=== PATIENT | male | born 1960 | race Two or more races ===

== ENCOUNTER → 2024-09-02 | Outpatient (CLI) | payer BC, SELFPAY ==
[2024-09-02 09:17] LABS: Glucose Estimated Average 117 mg/dL (80-131); Hemoglobin A1C 5.7 % Hgb (4.8-6.0)
== END | disposition home or self-care (01) ==
LOC: COPL 07:10
PROVIDERS: PCP Family Medicine; Referring Provider Family Medicine; Visit Provider Family Medicine
DX: E11.65 Type 2 diabetes mellitus with hyperglycemia (principal)
CPT/HCPCS: 36415; 83036

== ENCOUNTER → 2024-11-20 | Outpatient (CLI) | payer OTHER, SELFPAY ==
[2024-11-20 08:04] LABS: Collection Type, Urine Clean Catch
[2024-11-20 08:33] LABS: Basophils % (Auto) 0 % (0-2.5); Eosinophils # (Auto) 0.1 Thou/mm3 (0.0-0.5); Eosinophils % (Auto) 2 % (0-10); Hematocrit 44.8 % (41.0-53.0); Hemoglobin 15.6 g/dL (13.5-16.0); Immature Granulocytes % (Auto) 0 % (0-0); Immature Granulocytes Auto 0.01 Thou/mm3 (0.00-0.00); Lymphocytes # (Auto) 2.2 Thou/mm3 (1.0-4.8); Lymphocytes % (Auto) 32 % (10-50); Mean Corpuscular HGB Conc 34.8 g/dl (31.0-37.0); Mean Corpuscular Hemoglobin 30.9 pg (25.0-35.0); Mean Corpuscular Volume 89 fL (80-100); Monocytes # (Auto) 0.5 Thou/mm3 (0.0-0.8); Monocytes % (Auto) 7 % (0-12); Neutrophils # (Auto) 4.1 Thou/mm3 (1.8-7.7); Neutrophils % (Auto) 59 % (37-80); Nucleated Red Blood Cell % 0 /100 WBC (0); Platelet Count 218 Thou/mm3 (140-440); RDW Standard Deviation 41.3 fL (35.1-43.9); Red Blood Count 5.05 Miln/mm3 (4.50-5.90); White Blood Count 6.9 Thou/mm3 (3.8-10.6)
[2024-11-20 09:00] LABS: Bilirubin,Urine Negative (Negative); Blood,Urine Negative (Negative); Clarity,Urine Clear (Clear/Hazy); Color,Urine Yellow (Lt Yel-Yel); Glucose, Urine Negative (Negative); Ketones,Urine Negative (Negative); Leukocyte Esterase,Urine Negative (Negative); Nitrite,Urine Negative (Negative); PH,Urine 6.5 (5.0-7.0); Protein,Urine Trace (Neg - Trace); RBC,Urine 2 /hpf (0-3); Specific Gravity,Urine 1.023 (1.001-1.035); Squamous Epithelial Cell,Urine < 1 /hpf (0-5); Urobilinogen,Urine Negative mg/dL (0.0-1.0); WBC,Urine 3 /hpf (0-5)
[2024-11-20 09:02] LABS: Creatinine MALB Rnd Ur 190 mg/dL (30-125); Microalbumin Creat Ratio 2 mg/gCrea (<30); Microalbumin, Random Urine 4 mg/L (0-300)
[2024-11-20 09:20] LABS: Alanine Aminotransferase 24 U/L (10-49); Albumin, Serum 4.2 gm/dL (3.4-4.8); Albumin/Globulin Ratio 1.6 (1.2-2.2); Alkaline Phosphatase 85 U/L (46-116); Anion Gap 9 (7-16); Aspartate Amino Transferase 20 U/L (0-34); BUN/Creatinine Ratio 14 Ratio (12-20); Bilirubin,Total 0.6 mg/dL (0.3-1.2); Blood Urea Nitrogen 11 mg/dL (9-23); Calcium 9.1 mg/dL (8.3-10.6); Calcium (Corrected) 9.1 mg/dL (8.5-10.1); Carbon Dioxide 23.8 mMol/L (20.0-31.0); Cardiac Risk Estimate 2.5 RATIO (4.0-6.7); Chloride 105 mMol/L (98-107); Cholesterol 165 mg/dL (132-200); Creatinine (Component) 0.8 mg/dL (0.6-1.3); Globulin 2.6 gm/dL (2.3-3.5); Glucose 120 mg/dL (74-106); HDL Cholesterol 65 mg/dL (40-60); LDL Cholesterol,Calculated 78 mg/dL (0-130); Osmolality,Calculated 276 (275-295); Potassium 4.3 mMol/L (3.4-5.1); Sodium 138 mMol/L (136-145); Total Protein 6.8 gm/dL (5.7-8.2); Triglycerides 112 mg/dL (30-150); eGFR > 60 See Note
== END | disposition home or self-care (01) ==
LOC: COPL 07:16
PROVIDERS: PCP Family Medicine; Referring Provider Family Medicine; Visit Provider Family Medicine
DX: Z00.00 Encounter for general adult medical examination without abnormal findings (principal); E11.40 Type 2 diabetes mellitus with diabetic neuropathy, unspecified; E78.2 Mixed hyperlipidemia; I10 Essential (primary) hypertension
CPT/HCPCS: 36415; 80053; 80061; 81001; 82043; 82570; 85025

== ENCOUNTER → 2024-12-30 | Outpatient (CLI) | payer OTHER, SELFPAY ==
[2024-12-30 16:45] LABS: Collection Type, Urine Clean Catch
[2024-12-30 17:57] LABS: Bilirubin,Urine Negative (Negative); Blood,Urine Negative (Negative); Clarity,Urine Clear (Clear/Hazy); Color,Urine Yellow (Lt Yel-Yel); Glucose, Urine Negative (Negative); Hyaline Casts,Urine < 1 /hpf (0-1); Ketones,Urine Negative (Negative); Leukocyte Esterase,Urine Positive (Negative); Nitrite,Urine Negative (Negative); PH,Urine 6.5 (5.0-7.0); Protein,Urine Trace (Neg - Trace); RBC,Urine 1 /hpf (0-3); Specific Gravity,Urine 1.028 (1.001-1.035); Squamous Epithelial Cell,Urine 1 /hpf (0-5); WBC,Urine 8 /hpf (0-5)
== END | disposition home or self-care (01) ==
LOC: SLDO 16:31
PROVIDERS: PCP Family Medicine; Referring Provider Family Medicine; Visit Provider Family Medicine
DX: N30.00 Acute cystitis without hematuria (principal)
CPT/HCPCS: 81001; 87086

== ENCOUNTER 2025-02-04 13:20 | Outpatient (RCR) | payer OTHER, SELFPAY ==
--- NOTE | 2025-02-04 14:53 | CTCFLWUP_ITS ---
[facility] [address] [place], [place] [address] FOLLOW-UP NOTE Date: 02/04/2025 MR#: [id number] Name: LAYLA TOWNSEND : 1960 Dx: C61 Malignant neoplasm of prostate Identification. Patient was CA the prostate underwent radical prostatectomy performed at [facility] by Dr. Davalos 12/26/2023. Final path revealed Chi's 3+4 equal 7 group 2 with extraprostatic extension focal involvement and perineural invasion. PSA had risen to 0.18., And reportedly has risen more and recommended radiation with Lupron shots. I was unable to get hold of Joleen Chirinos who works with Dr. Davalos today. PSMA PET scan has been ordered we will check this as well. In the meantime in anticipation of treatment discussion regarding Lupron shots and radiation was described along with the side effects. Electronically signed by: Quinn Hawkins M.D. 02/04/2025 2:51 PM
--- NOTE | 2025-02-04 14:56 | CTCTXPLN_ITS ---
[facility] [place] [address] [place], [place] [address] Physician Clinical Treatment Planning Note Date of Service: 02/04/2025 Name: LAYLA TOWNSEND : 1960 The patient has agreed to proceed with Radiation therapy. Tests and supporting medical records were interpreted to assist in defining the tumor location and extent of disease. Further imaging will be necessary to contour and delineate the volume to which the XRT will be provided. A. Treatment Intent: Curative B. Modality: 10 MV C. Requested Technique: VMAT D. Treatment Site: Pelvis E. Critical structures to be contoured on plan: F. In order to accomplish this plan, I am ordering/Prescribing the followin. Simulations (s) will be performed to accomplish a reproducible treatment position, to determine optimal treatment portals/beam arrangements, to design beam modifying devices and verify treatment portals on patient prior to the commencement of Radiation Therapy. Pelvis 2. Devices; for immobilization and beam shaping: Vac-Ting 3. CT Guidance for placement of XRT bruno Scan area: Pelvis 4. Portal images Frequency: 5. Invivo transit dose measurement once per week on all VMAT patients. 6. Special Physics Consult Requested for: 7. Other requests: G. Dose Objectives: Curative Electronically signed by: Quinn Hawkins M.D. 02/04/2025 2:54 PM
--- NOTE | 2025-02-04 14:58 | CTCTXPLNST_ITS ---
1Radiation Oncology Treatment Planning Sheet Name: LAYLA TOWNSEND MR#: [id number] : 1960 Dx: C61 Malignant neoplasm of prostate Date of Service: 02/04/2025 Account #: ?? Pt Treatment Intent: curative palliative other: Stage: Procedure CPT # Ordered Spec. Procedure 31229 Mojica Complex (set-up) 82599 pelvis 1 Mojica Simple 33379 IMRT Plan 16107 1 MLC Devices VMAT 62332 3 Mojica 3 D 66180 TRTMT dev Complex 67808 1 TRTMT dev simple 35502 Basic [place] 81080 6 Special Dosimetry 89669 Spec Physics 35633 Port Films 35189 SRS Cranial/1FX 28242 SBR 5 FX or Less /ex: 5 = 5 fx 88993 IMRT Simple 23603 6840 38 IMRT Complex 70051 IGRT 24427 35 Rad del com 6-10 28810 Rad del com 11- 06580 Cont Med Physics 07013 7 Treatment Planning 88558 1 Rad del com 20 mev 26271 Rad del inter 6-10 71389 Rad del inter 11 25581 Rad del simple 6-10 27860 Rad del simple 11-19 83747 Special Port Plan 77324 TRTMT dev inter 98282 Isodose Complex 56967 Isodose simple 32696 Resp Motion Mgmt Simulation 39168 Placement of Fiducial Markers 32006 Electronically Signed By: Quinn Hawkins MD, DABR 02/04/2025 2:56 PM
== END 2025-02-12 23:59 | disposition home or self-care (01) ==
LOC: SCTC 13:20
PROVIDERS: PCP Family Medicine; Referring Provider Family Medicine; Visit Provider Radiology Therapeutic Radiology
DX: C61 Malignant neoplasm of prostate (principal); Z90.79 Acquired absence of other genital organ(s)
CPT/HCPCS: 99213; G0463

== ENCOUNTER → 2025-03-06 | Outpatient (CLI) | payer OTHER, SELFPAY ==
[2025-03-06 16:38] LABS: Glucose Estimated Average 120 mg/dL (80-131); Hemoglobin A1C 5.8 % Hgb (4.8-6.0)
== END | disposition home or self-care (01) ==
LOC: COPL 14:54
PROVIDERS: PCP Family Medicine; Referring Provider Family Medicine; Visit Provider Family Medicine
DX: E11.40 Type 2 diabetes mellitus with diabetic neuropathy, unspecified (principal)
CPT/HCPCS: 36415; 83036

== ENCOUNTER 2025-03-14 07:48 | Outpatient (RCR) | payer OTHER, SELFPAY ==
--- NOTE | 2025-02-14 09:27 | CTCSNOTE_ITS ---
[facility] [address] [place], [place] [address] CT Simulation Note Date: 02/14/2025 MR# [id number] Name: LAYLA TOWNSEND : 1960 (A) DIAGNOSIS: C61 Malignant neoplasm of prostate (B) Patient was placed in supine position and used vaklok for immobilization purposes. (C) CT slices included pelvis (D) VMAT Will be needed for maximum sparing of adjacent normal critical structures. (E) Patient tolerated the simulation well and left the room in good condition. Electronically signed by: Quinn Hawkins MD, ROSE 02/14/2025 9:24 AM
== END 2025-03-15 23:59 | disposition home or self-care (01) ==
LOC: SCTC 07:48
PROVIDERS: PCP Family Medicine; Referring Provider Family Medicine; Visit Provider Radiology Therapeutic Radiology
DX: Z51.0 Encounter for antineoplastic radiation therapy (principal); Z51.11 Encounter for antineoplastic chemotherapy; C61 Malignant neoplasm of prostate; Z90.79 Acquired absence of other genital organ(s)
CPT/HCPCS: 77014; 77290; 77300; 77301; 77334; 77336; 77338; 77385; 96402; J9217

== ENCOUNTER → 2025-03-17 | Outpatient (CLI) | payer OTHER, SELFPAY ==
--- NOTE | 2025-03-17 14:38 | XR_ITS ---
Examination: Knee bilateral, 6 views Technique: Knee AP, lateral, oblique each knee total 6 views INDICATIONS: Bilateral knee pain 8 months Date and time of exam: March 17, 2025 1424 hours findings: Minimal narrowing medial joint spaces Early osteoarthritis patellofemoral joints No erosive arthritis No fracture or dislocation involving either knee IMPRESSION: Bilateral knee mild osteoarthritis
== END | disposition home or self-care (01) ==
PROVIDERS: PCP Family Medicine; Referring Provider Family Medicine; Visit Provider Family Medicine
DX: M17.0 Bilateral primary osteoarthritis of knee (principal)
CPT/HCPCS: 73562

== ENCOUNTER → 2025-03-21 | Outpatient (CLI) | payer OTHER, SELFPAY ==
--- NOTE | 2025-03-21 08:30 | XR_ITS ---
Examination: Lumbar spine, 5 views Technique: Lumbar spine AP, lateral, coned lateral lower lumbar spine, bilateral obliques 5 views Exam date and time: March 21, 2025 0834 hours INDICATIONS: Lower back pain 6 months, history fracture L4-L5 vertebral body 6 years ago FINDINGS: Comparison February 05, 2024 Prominent facet arthropathy No lumbar fracture Mild to moderate lumbar spondylosis Mild disc narrowing L5-S1 IMPRESSION: No lumbar fracture Mild disc narrowing L5-S1
--- NOTE | 2025-03-21 08:30 | XR_ITS ---
EXAMINATION: Cervical spine, 5 views Technique: Cervical spine AP, AP odontoid, lateral, bilateral obliques, 5 views Exam date and time: March 21, 2025 0834 hours INDICATIONS: Neck pain 6 months. FINDINGS: Adequate alignment cervical vertebral bodies Early degenerative disc disease C4-C5, C5-C6 No cervical fracture Intact odontoid No significant neural foraminal stenosis IMPRESSION: Early degenerative disc disease C4-C5, C5-C6
== END | disposition home or self-care (01) ==
LOC: CDIM 08:27
PROVIDERS: PCP Family Medicine; Referring Provider Orthopaedic Surgery; Visit Provider Orthopaedic Surgery
DX: M50.321 Other cervical disc degeneration at C4-C5 level (principal); M48.07 Spinal stenosis, lumbosacral region
CPT/HCPCS: 72050; 72110

== ENCOUNTER 2025-04-14 14:20 | Outpatient (RCR) | payer OTHER, SELFPAY ==
--- NOTE | 2025-03-17 13:52 | CTCTRTNOTE_ITS ---
[facility] [address] [place], [place] [address] Weekly Management Date: 03/17/2025 ?? Name: LAYLA TOWNSEND : 1960 A. Patient is currently at 2160 cGy. B. Patient is tolerating treatment well. C. Resume radiation therapy. Electronically signed by: Quinn Hawkins M.D. 03/17/2025 1:49 PM
== END 2025-04-14 23:59 | disposition home or self-care (01) ==
LOC: SCTC 14:20
PROVIDERS: PCP Family Medicine; Referring Provider Family Medicine; Visit Provider Radiology Therapeutic Radiology
DX: Z51.0 Encounter for antineoplastic radiation therapy (principal); C61 Malignant neoplasm of prostate; Z90.79 Acquired absence of other genital organ(s)
CPT/HCPCS: 77336; 77385

== ENCOUNTER → 2025-05-05 | Outpatient (CLI) | payer OTHER, SELFPAY ==
[2025-05-05 09:40] LABS: Prostate Specific Antigen < 0.10 ng/mL (0-4.00)
== END | disposition home or self-care (01) ==
LOC: COPL 08:12
PROVIDERS: PCP Family Medicine; Referring Provider Radiology Therapeutic Radiology; Visit Provider Radiology Therapeutic Radiology
DX: C61 Malignant neoplasm of prostate (principal)
CPT/HCPCS: 36415; 84153

== ENCOUNTER 2025-05-07 14:22 | Outpatient (RCR) | payer OTHER, SELFPAY | END 2025-05-15 23:59 | disposition home or self-care (01) | LOC: SCTC 14:22 | PROVIDERS: PCP Family Medicine; Referring Provider Family Medicine; Visit Provider Radiology Therapeutic Radiology | DX: Z51.0 Encounter for antineoplastic radiation therapy (principal); C61 Malignant neoplasm of prostate | CPT/HCPCS: 77336; 77385; 99212; G0463 ==

== ENCOUNTER 2025-05-13 14:31 | Outpatient (RCR) | payer OTHER, SELFPAY ==
--- NOTE | 2025-05-13 15:10 | PTNOTE_ITS ---
PT OP Initial Eval Patient Information Outpatient Physical Therapy Treatment Date: 05/13/25 Visit Reasons: Radiculopathy Medical Diagnosis: B L1-2 radiculopathy Start of Care: 05/13/25 Date of Onset: 1.5 yrs ago Smoking Status Smoking Status: Never smoker Initial Assessment Subjective: Pt is 64 yr old male who c/o LBP and B LE pain since prostate removal 1.5 yrs ago. Increased pain with prolonged standing and sitting x 1 hr. He has difficulty finding comfortable positioning at night to sleep. PMH: prostate cancer, Hx of L5 vertebral body FX in 2010, borderline DM, HTN, high cholesterol Imaging: Xray of L/S in EMR Mild disc narrowing L5-S1 Pt goal: to get rid of the pain in order to play golf Objective: ? Trunk ArOM: ? B SB 50% of normal with LBP ? Extension: 20% with pain around L4-5, L5-S1 ? Flexion: 14 from floor with LBP ? B rotation: 60% with pain ? R SLR ROM: 45 deg. L SLR: 50 deg with posterior knee neural tension, LBP ? TTP: moderate paraspinals L5-S1 ? Neuro: B SLR: positive Assessment: Pt presents with limited trunk ROM into forward bending and sidebending that provoke the anterior thigh pain consistent with stenosis and lumbar L1-2 radiculopathy and vertebral osteophyte spurring. B SLR testing is positive. Pt has poor rehab potential to meet goals and is likely to have more pain with therapy interventions. PT recommends further diagnostic imaging of L/S such as MRI. Short Term and [employer] Copy[employer] Goals Eval and D/C Treatment Plan Eval and D/C Certification Dates: 05/13/25 Procedure Charges OP PT Eval Mod Complex 30 minutes: Yes
== END 2025-05-15 23:59 | disposition home or self-care (01) ==
LOC: CPTX 14:31
PROVIDERS: PCP Orthopaedic Surgery; Referring Provider Orthopaedic Surgery; Visit Provider Orthopaedic Surgery
DX: M54.16 Radiculopathy, lumbar region (principal); I10 Essential (primary) hypertension
CPT/HCPCS: 97162

== ENCOUNTER → 2025-07-29 | Outpatient (CLI) | payer OTHER, SELFPAY ==
[2025-07-29 15:51] LABS: Basophils # (Auto) 0.0 Thou/mm3 (0.0-0.2); Basophils % (Auto) 0 % (0-2.5); Eosinophils # (Auto) 0.1 Thou/mm3 (0.0-0.5); Eosinophils % (Auto) 2 % (0-10); Hematocrit 39.2 % (41.0-53.0); Hemoglobin 13.6 g/dL (13.5-16.0); Immature Granulocytes Auto 0.01 Thou/mm3 (0.00-0.00); Lymphocytes # (Auto) 1.3 Thou/mm3 (1.0-4.8); Lymphocytes % (Auto) 23 % (10-50); Mean Corpuscular HGB Conc 34.7 g/dl (31.0-37.0); Mean Corpuscular Hemoglobin 30.4 pg (25.0-35.0); Mean Corpuscular Volume 88 fL (80-100); Monocytes # (Auto) 0.2 Thou/mm3 (0.0-0.8); Monocytes % (Auto) 4 % (0-12); Neutrophils # (Auto) 3.9 Thou/mm3 (1.8-7.7); Neutrophils % (Auto) 71 % (37-80); Nucleated Red Blood Cell # 0.00 Thou/mm3 (0.00-0.00); Nucleated Red Blood Cell % 0 /100 WBC (0); Platelet Count 184 Thou/mm3 (140-440); RDW Standard Deviation 40.1 fL (35.1-43.9); Red Blood Count 4.48 Miln/mm3 (4.50-5.90); White Blood Count 5.6 Thou/mm3 (3.8-10.6)
[2025-07-29 16:03] LABS: C-Reactive Protein < 0.5 mg/dL (0.0-0.9)
[2025-07-29 17:58] LABS: Sed Rate (ESR) 47 mm/hr (0-20)
== END | disposition home or self-care (01) ==
LOC: COPL 14:54
PROVIDERS: PCP Family Medicine; Referring Provider Specialist; Visit Provider Specialist
DX: M54.50 Low back pain, unspecified (principal); M51.361 Other intervertebral disc degeneration, lumbar region with lower extremity pain only; M54.16 Radiculopathy, lumbar region; Z85.46 Personal history of malignant neoplasm of prostate
CPT/HCPCS: 36415; 85025; 85652; 86140